=== PATIENT | female | born 1940 | race American Indian/Alaskan Native ===

== ENCOUNTER → 2017-01-01 | Outpatient (CLI) | payer OTHER ==
[~2017-01-01] MED LIST: ACYC-114 PO; ALBU18HF INH; ALBU8.5H3 INH; ASPI-515 PO; BACL-19 PO; BUSP10TA PO; CITA40TA5 PO; CLOP75TA PO; DICL500C PO; DICL75TA2 PO; DIPH25TA2 PO; DOXY100T PO; ECON15CR TP; ESTR1TAB15 PO; FENO145T32 PO; FENO160T PO; FERR324T18 PO; FURO-93 PO; GABA300C10 PO; LAMO25TA PO; LAMO25TB PO; LAMO50TA3 PO; LEVO50TA5 PO; LEVO750T26 PO; LOSA100T6 PO; OMEP-110 PO; PRAS10TA4 PO; TRAM100T2 PO; TRAM50TA2 PO; VALA500T PO; VERA180T56 PO
[2017-01-01 16:13] LABS: ASPARTATE AMINO TRANSFERASE 8 U/L (15-37); BLOOD UREA NITROGEN 11 mg/dL (7-18)
== END | disposition home or self-care (01) ==
LOC: STAR 14:59
PROVIDERS: ATTEND Thoracic Surgery (Cardiothoracic Vascular Surgery)
DX: Z01.812 Encounter for preprocedural laboratory examination (principal)
CPT/HCPCS: 36415; 80053; 85025

== ENCOUNTER 2017-01-10 06:52 | Inpatient (IN) | payer OTHER ==
[2017-01-01 15:26] VITALS: BP 159/73
[~2017-01-10] VITALS: Ht 162.6 cm; Wt 82.4 kg
[2017-01-10] MEDS ORDERED: BUPIVACAINE/PF-EPI 0.25% 1:200K ONE (07:09)
[2017-01-10] MEDS ORDERED: LACTATED RINGERS 1,000 ML IV SCH ×2 (07:47→09:59)
[2017-01-10] MEDS ORDERED: FENTANYL PF 250 MCG/5ML ONE (07:56)
[2017-01-10] MEDS ORDERED: LIDOCAINE 1%, 2ML SQ PRN (08:00)
[2017-01-10] MEDS ORDERED: HYDROcodone/APAP 7.5-325MG/15ML UDC PO PRN (09:00)
[2017-01-10] MEDS ORDERED: OXYcodone 5 MG/5 ML ORAL.SOL UDC PO PRN (09:00)
[2017-01-10] MEDS ORDERED: EPHEDRINE 50 MG/ML, 1ML IVPush PRN (09:00)
[2017-01-10] MEDS ORDERED: ONDANSETRON 2MG/ML, 2ML IVPush PRN (09:00)
[2017-01-10] MEDS ORDERED: KETOROLAC 30 MG/1 ML IV PRN (09:00)
[2017-01-10] MEDS ORDERED: FENTANYL PF 100 MCG/2ML IV PRN (09:00)
[2017-01-10] MEDS ORDERED: hydrALAzine 20 MG/ML, 1ML IV PRN (09:00)
[2017-01-10] MEDS ORDERED: PROMETHAZINE 25 MG/ML, 1ML IV PRN (09:00)
[2017-01-10] MEDS ORDERED: LABETALOL 5MG/ML, 20ML IV PRN (09:00)
[2017-01-10] MEDS ORDERED: ACETAMINOPHEN 325 MG TABLET PO PRN ×2 (09:00→10:00)
[2017-01-10] MEDS ORDERED: ACETAMINOPHEN 650 MG SUPP PR PRN (10:00)
[2017-01-10] MEDS ORDERED: LORazepam 1MG TABLET PO PRN (10:00)
[2017-01-10] MEDS ORDERED: DICLOXACILLIN 500 MG CAPSULE PO SCH (10:00)
[2017-01-10] MEDS ORDERED: ENALAPRILAT 1.25 MG/ML, 2ML IVPush PRN (10:00)
[2017-01-10] MEDS ORDERED: hydrALAzine 20 MG/ML, 1ML IVPush PRN (10:00)
[2017-01-10] MEDS ORDERED: LORazepam 2 MG/ML, 1ML IVPush PRN (10:00)
[2017-01-10] MEDS ORDERED: DIPHENHYDRAMINE 25 MG CAPSULE PO PRN (10:00)
[2017-01-10] MEDS ORDERED: morphine SULFATE 10 MG/ML, 1ML IVPush PRN (10:00)
[2017-01-10] MEDS ORDERED: DIPHENHYDRAMINE 50 MG/ML, 1ML IVPush PRN (10:00)
[2017-01-10] MEDS ORDERED: HYDROmorphone 2 MG/ML, 1ML ONE (10:12)
[2017-01-10] MEDS ORDERED: ACETAMINOPHEN 650 MG/20.3 ML UDC ONE (10:12)
[2017-01-10] MEDS ORDERED: KETOROLAC 30 MG/1 ML ONE (10:12)
[2017-01-10] MEDS ORDERED: OXYcodone 5 MG/5 ML ORAL.SOL UDC ONE (10:12)
[2017-01-10] MEDS: HYDROmorphone 1 MG/ML, 1ML IV PRN ×2 (10:24→10:35)
[2017-01-10] MEDS ORDERED: ALBUTEROL SULFATE 2.5 MG/3 ML NPPB PRN (12:30)
[2017-01-10 13:39] VITALS: BP 123/51
[2017-01-10 14:00] VITALS: BP 123/46
[2017-01-10] MEDS: HYDROcodone/APAP 5/325 TABLET PO PRN ×3 (14:55→23:35)
[2017-01-10] MEDS: BACLOFEN 10 MG TABLET PO SCH ×2 (15:01→19:39)
[2017-01-10] MEDS: GABAPENTIN 300 MG CAPSULE PO SCH ×2 (15:01→19:39)
[2017-01-10] MEDS: BUSPIRONE 5 MG TABLET PO SCH ×2 (15:01→19:39)
[2017-01-10] MEDS ORDERED: ROCURONIUM 10 MG/ML ONE (16:03)
[2017-01-10] MEDS ORDERED: SUGAMMADEX 200 MG/2 ML IVPush ONE (16:03)
[2017-01-10] MEDS ORDERED: SUCCINYLCHOLINE 20 MG/ML, 10ML ONE (16:03)
[2017-01-10] MEDS ORDERED: CEFAZOLIN 1,000 MG ONE (16:03)
[2017-01-10] MEDS ORDERED: ONDANSETRON 2MG/ML, 2ML ONE (16:03)
[2017-01-10] MEDS ORDERED: DEXAMETHASONE 4 MG/ML, 5ML ONE (16:03)
[2017-01-10] MEDS ORDERED: PROPOFOL 10 MG/ML, 20ML ONE (16:03)
[2017-01-10] MEDS: CEFAZOLIN PMX 1GM/50ML 50 ML IV SCH (18:37)
[2017-01-10 19:02] VITALS: BP 110/49
[2017-01-11] MEDS: CEFAZOLIN PMX 1GM/50ML 50 ML IV SCH ×2 (00:45→09:00)
[2017-01-11 01:29] VITALS: BP 120/58
[2017-01-11 01:30] VITALS: BP 120/58
[2017-01-11 05:00] LABS: BLOOD UREA NITROGEN 19 mg/dL (7-18)
[2017-01-11] MEDS: HYDROcodone/APAP 5/325 TABLET PO PRN ×4 (05:32→19:26)
[2017-01-11 07:26] VITALS: BP 121/65
[2017-01-11] MEDS: BUSPIRONE 5 MG TABLET PO SCH ×3 (08:24→22:19)
[2017-01-11] MEDS: BACLOFEN 10 MG TABLET PO SCH ×3 (08:25→22:19)
[2017-01-11] MEDS: CITALOPRAM 20 MG TABLET PO SCH (08:25)
[2017-01-11] MEDS: LOSARTAN 50MG TABLET PO SCH (08:25)
[2017-01-11] MEDS: VERAPAMIL ER 180MG TABLET.ER PO SCH (08:25)
[2017-01-11] MEDS: GABAPENTIN 300 MG CAPSULE PO SCH ×3 (08:26→22:18)
[2017-01-11] MEDS: ACYCLOVIR 400 MG TABLET PO SCH (08:26)
[2017-01-11] MEDS: ESTRADIOL 1 MG TABLET PO SCH (08:26)
[2017-01-11] MEDS: LAMOTRIGINE 25 MG TABLET PO SCH (08:26)
[2017-01-11] MEDS: LEVOTHYROXINE 50 MCG TABLET PO SCH (08:26)
[2017-01-11] MEDS: ENOXAPARIN 40 MG/0.4 ML SQ SCH (08:27)
[2017-01-11] MEDS: OMEPRAZOLE 20 MG CAPSULE.DR PO SCH (08:30)
[2017-01-11] MEDS ORDERED: LACTATED RINGERS 1,000 ML IV SCH (09:59)
[2017-01-11 12:48] VITALS: BP 104/55
[2017-01-11 20:11] VITALS: BP 126/62
[2017-01-12 00:55] VITALS: BP 126/67
[2017-01-12] MEDS: HYDROcodone/APAP 5/325 TABLET PO PRN ×5 (01:22→21:39)
[2017-01-12 08:05] VITALS: BP 112/53
[2017-01-12] MEDS: ENOXAPARIN 40 MG/0.4 ML SQ SCH (08:31)
[2017-01-12] MEDS: BUSPIRONE 5 MG TABLET PO SCH ×3 (08:35→21:37)
[2017-01-12] MEDS: LAMOTRIGINE 25 MG TABLET PO SCH (08:35)
[2017-01-12] MEDS: CITALOPRAM 20 MG TABLET PO SCH (08:36)
[2017-01-12] MEDS: ESTRADIOL 1 MG TABLET PO SCH (08:36)
[2017-01-12] MEDS: VERAPAMIL ER 180MG TABLET.ER PO SCH (08:36)
[2017-01-12] MEDS: LOSARTAN 50MG TABLET PO SCH (08:36)
[2017-01-12] MEDS: GABAPENTIN 300 MG CAPSULE PO SCH ×3 (08:37→21:37)
[2017-01-12] MEDS: ACYCLOVIR 400 MG TABLET PO SCH (08:37)
[2017-01-12] MEDS: OMEPRAZOLE 20 MG CAPSULE.DR PO SCH (08:37)
[2017-01-12] MEDS: LEVOTHYROXINE 50 MCG TABLET PO SCH (08:37)
[2017-01-12] MEDS: BACLOFEN 10 MG TABLET PO SCH ×3 (08:37→21:37)
[2017-01-12] MEDS ORDERED: KETOROLAC 30 MG/1 ML IV PRN (11:00)
[2017-01-12 13:54] VITALS: BP 100/62
[2017-01-12] MEDS ORDERED: FUROSEMIDE 20 MG/2 ML IV ONE (14:00)
[2017-01-12 18:28] VITALS: BP 139/63
[2017-01-13 02:01] VITALS: BP 121/70
[2017-01-13] MEDS: HYDROcodone/APAP 5/325 TABLET PO PRN ×2 (02:05→12:57)
[2017-01-13 06:49] VITALS: BP 116/68
[2017-01-13] MEDS: GABAPENTIN 300 MG CAPSULE PO SCH (10:06)
[2017-01-13] MEDS: ACYCLOVIR 400 MG TABLET PO SCH (10:06)
[2017-01-13] MEDS: BUSPIRONE 5 MG TABLET PO SCH (10:06)
[2017-01-13] MEDS: VERAPAMIL ER 180MG TABLET.ER PO SCH (10:07)
[2017-01-13] MEDS: CITALOPRAM 20 MG TABLET PO SCH (10:07)
[2017-01-13] MEDS: LOSARTAN 50MG TABLET PO SCH (10:08)
[2017-01-13] MEDS: LAMOTRIGINE 25 MG TABLET PO SCH (10:08)
[2017-01-13] MEDS: OMEPRAZOLE 20 MG CAPSULE.DR PO SCH (10:09)
[2017-01-13] MEDS: LEVOTHYROXINE 50 MCG TABLET PO SCH (10:09)
[2017-01-13] MEDS: BACLOFEN 10 MG TABLET PO SCH (10:10)
[2017-01-13] MEDS: ESTRADIOL 1 MG TABLET PO SCH (10:11)
[2017-01-13] MEDS: ENOXAPARIN 40 MG/0.4 ML SQ SCH (10:13)
[2017-01-13] MEDS ORDERED: HYDR-3138 PO (11:39)
[2017-01-13 13:19] VITALS: BP 95/56
== END 2017-01-13 17:18 | disposition home or self-care (01) | DRG 165 ==
LOC: ORIP 06:52 → 3NW 11:23
PROVIDERS: ADMIT Thoracic Surgery (Cardiothoracic Vascular Surgery); ATTEND Thoracic Surgery (Cardiothoracic Vascular Surgery)
PROC: 0BTG4ZZ Resection of Left Upper Lung Lobe, Percutaneous Endoscopic Approach (ICD-10-PCS; principal; 2017-01-10 09:00)
DX: C34.12 Malignant neoplasm of upper lobe, left bronchus or lung (principal); Z87.891 Personal history of nicotine dependence; E78.2 Mixed hyperlipidemia; I25.10 Atherosclerotic heart disease of native coronary artery without angina pectoris; I08.0 Rheumatic disorders of both mitral and aortic valves; Z95.5 Presence of coronary angioplasty implant and graft; K21.9 Gastro-esophageal reflux disease without esophagitis; F31.9 Bipolar disorder, unspecified; E03.9 Hypothyroidism, unspecified; I13.10 Hypertensive heart and chronic kidney disease without heart failure, with stage 1 through stage 4 chronic kidney disease, or unspecified chronic kidney disease; N18.3 Chronic kidney disease, stage 3 (moderate)
CPT/HCPCS: 36415; 71010; 80048; 85025; 86850; 86900; 86923; 88309; 88331; C1729; J0690; J1100; J1170; J1650; J1885; J2405; J2704; J3010; J0330; J1940; J2270; J7120

== ENCOUNTER → 2017-05-30 | Outpatient (CLI) | payer OTHER ==
[~2017-05-30] MED LIST changes: -ALBU8.5H3 INH; +ALBU8.5H8 INH; +HYDR-3237 PO
== END | disposition home or self-care (01) ==
LOC: CFH 13:18 → EDSTATUS 14:00
PROVIDERS: ATTEND Internal Medicine Cardiovascular Disease
DX: I08.3 Combined rheumatic disorders of mitral, aortic and tricuspid valves (principal); I25.2 Old myocardial infarction; E78.5 Hyperlipidemia, unspecified; Z87.891 Personal history of nicotine dependence
CPT/HCPCS: 93306

== ENCOUNTER → 2017-10-04 | Outpatient (CLI) | payer OTHER | END | disposition home or self-care (01) | LOC: CFH 13:20 | PROVIDERS: ATTEND Internal Medicine | DX: R91.8 Other nonspecific abnormal finding of lung field (principal); Z98.890 Other specified postprocedural states | CPT/HCPCS: 71250 ==

== ENCOUNTER → 2018-06-24 | Outpatient (CLI) | payer OTHER ==
[~2018-06-24] MED LIST changes: +EVOL140S IJ; -LAMO25TB PO; +LAMO25TB7 PO; -LOSA100T6 PO; +LOSA100T7 PO; -TRAM100T2 PO; +TRAM100T33 PO
== END | disposition home or self-care (01) ==
LOC: CFH 12:18
PROVIDERS: ATTEND Internal Medicine Cardiovascular Disease
DX: I08.3 Combined rheumatic disorders of mitral, aortic and tricuspid valves (principal); I25.2 Old myocardial infarction; E78.5 Hyperlipidemia, unspecified; Z85.118 Personal history of other malignant neoplasm of bronchus and lung; Z87.891 Personal history of nicotine dependence
CPT/HCPCS: 93306

== ENCOUNTER → 2018-06-24 | Outpatient (CLI) | payer OTHER ==
[~2018-06-24] MED LIST changes: +OMNIPAQUE 350 MG/ML, 100ML BOTTLE ONE
== END | disposition home or self-care (01) ==
LOC: RAD 12:14
PROVIDERS: ATTEND Internal Medicine
DX: R91.1 Solitary pulmonary nodule (principal); Z90.49 Acquired absence of other specified parts of digestive tract
CPT/HCPCS: 36415; 71275; 82565; Q9967

== ENCOUNTER → 2019-01-29 | Outpatient (CLI) | payer MEDICARE ==
[~2019-01-29] MED LIST changes: -DICL75TA2 PO; +DICL75TA3 PO; -LAMO25TA PO; +LAMO25TA9 PO; +LOSA100T14 PO; -LOSA100T7 PO; -OMNIPAQUE 350 MG/ML, 100ML BOTTLE ONE; -VERA180T56 PO; +VERA180T6 PO
== END | disposition home or self-care (01) ==
LOC: CFH 14:22
PROVIDERS: ATTEND Internal Medicine Cardiovascular Disease
DX: I11.9 Hypertensive heart disease without heart failure (principal); I08.3 Combined rheumatic disorders of mitral, aortic and tricuspid valves
CPT/HCPCS: 93306

== ENCOUNTER 2019-10-14 12:49 | Emergency (ER) | payer MEDICARE ==
[~2019-10-14] VITALS: Ht 162.6 cm; Wt 70.0 kg
[~2019-10-14 12:49] MED LIST changes: -ECON15CR TP; +ECON15CR3 TP; -EVOL140S IJ; +EVOL140S2 IJ; -VALA500T PO; +VALA500T8 PO
--- NOTE | 2019-10-14 13:08 | NUR ---
[facility]. report received from [facility]. pt c/o n/v/d x 3 days. pt states" i can't keep anything down for 3 days." pt's aox4. resps even and unlabored. bp/spo2 monitors in place. call light within reach.
[2019-10-14] MEDS ORDERED: SODIUM CHLORIDE 0.9% 1,000ML IVBOLUS ONE (13:30)
[2019-10-14] MEDS ORDERED: FAMOTIDINE 20 MG/2 ML IV ONE (13:30)
[2019-10-14] MEDS ORDERED: SODIUM CHLORIDE FLUSH 10ML SYR IVF ONE (13:30)
[2019-10-14] MEDS ORDERED: ONDANSETRON 2MG/ML, 2ML ONE (13:30)
[2019-10-14] MEDS ORDERED: ONDANSETRON 2MG/ML, 2ML IVPush ONE (13:30)
[2019-10-14] MEDS ORDERED: FAMOTIDINE 20 MG/2 ML ONE (13:31)
[2019-10-14 13:37] LABS: BASOPHILS # (AUTO) 0.05 x10^3/uL (0-0.1); BASOPHILS % (AUTO) 1 % (0-1); EOSINOPHILS # (AUTO) 0.01 x10^3/uL (0-0.4); EOSINOPHILS % (AUTO) 0 % (1-7); LYMPHOCYTES # (AUTO) 1.98 x10^3/uL (1-3.4); LYMPHOCYTES % (AUTO) 18 % (22-44); MD NO; MEAN CORPUSCULAR HEMOGLOBIN 28.9 pg (27.0-34.8); MEAN CORPUSCULAR HGB CONC 33.3 g/dL (32.4-35.8); MEAN CORPUSCULAR VOLUME 86.8 fL (80-100); MEAN PLATELET VOLUME 7.6 fL (7.4-10.4); MONOCYTES # (AUTO) 0.46 x10^3/uL (0.2-0.8); MONOCYTES % (AUTO) 4 % (2-9); NEUTROPHILS # (AUTO) 8.27 x10^3/uL (1.8-6.8); NEUTROPHILS % (AUTO) 77 % (42-75); PLATELET COUNT 361 x10^3/uL (130-400); RED BLOOD COUNT 4.67 x10^6/uL (3.82-5.3); RED CELL DISTRIBUTION WIDTH 15.5 % (9.6-15.2)
--- NOTE | 2019-10-14 13:40 | NUR ---
PT AMB TO BR AND BACK TO ROOM WITH STEADY GAIT. PT STATES"I CAN'T PEE. I HAVEN'T HAD ANY WATER OR EAT FOR 3 DAYS."
--- NOTE | 2019-10-14 13:43 | NUR ---
PT MEDICATED PER [facility]. PT TOLERATED WELL. PT'S AOX4. RESPS EVEN AND UNLABORED. NS INFUISNG AT THIS TIME.
[2019-10-14 13:48] LABS: ALANINE AMINOTRANSFERASE 11 U/L (12-78); ALBUMIN 3.7 g/dL (3.4-5.0); ANION GAP 10 mmol/L (5-15); CALCIUM 8.9 mg/dL (8.5-10.1); CHLORIDE 107 mmol/L (98-107); CREATININE 0.82 mg/dL (0.55-1.02)
[2019-10-14 13:51] LABS: ALKALINE PHOSPHATASE 90 U/L (45-117); BILIRUBIN,TOTAL 0.4 mg/dL (0.2-1.0); TOTAL PROTEIN 7.2 g/dL (6.4-8.2)
--- NOTE | 2019-10-14 14:15 | NUR ---
WARM BLANCKET GIVEN AT THIS TIME.
--- NOTE | 2019-10-14 15:18 | NUR ---
PT PROVIDED A SMALL AMOUNT OF URINE SAMPLE AT THIS TIME. THIS RN WALKED TO LAB FOR UA.
[2019-10-14 15:38] LABS: MICROSCOPIC INDICATED
--- NOTE | 2019-10-14 15:53 | NUR ---
WATER PROVIDED FOR PO CHALLENGE.
[2019-10-14 15:55] LABS: CULTURE INDICATED? NO
[2019-10-14 16:18] VITALS: BP 175/63
--- NOTE | 2019-10-14 17:15 | NUR ---
Patient given discharge instructions and they have confirmed that they understand the instructions.
== END 2019-10-14 17:16 | disposition home or self-care (01) ==
LOC: ED 12:50
DX: R11.2 Nausea with vomiting, unspecified (principal); R19.7 Diarrhea, unspecified; K21.9 Gastro-esophageal reflux disease without esophagitis; I11.0 Hypertensive heart disease with heart failure; I50.9 Heart failure, unspecified
CPT/HCPCS: 36415; 80053; 81001; 83690; 85025; 96361; 96374; 96375; 99283; J2405; J3490; J7030